=== PATIENT | male | born 1955 | race Caucasian/White ===

== ENCOUNTER → 2016-06-10 | Outpatient (CLI) | payer OTHER ==
[~2016-06-10] MED LIST: ALLO300T2 PO; ASPI81TA27 PO; CLOP75TA28 PO; EZET10TA38 PO; GEMF600T3 PO; LISI-646 PO; METO25TA5 PO; PANT1INJ3 PO
== END | disposition home or self-care (01) ==
LOC: Rad HDHVI 13:54
PROVIDERS: ATTEND Internal Medicine Cardiovascular Disease
DX: R07.89 Other chest pain (principal)
CPT/HCPCS: 93306

== ENCOUNTER → 2016-07-07 | Outpatient (CLI) | payer OTHER ==
[~2016-07-07] VITALS: Ht 185.4 cm; Wt 93.4 kg
== END | disposition home or self-care (01) ==
LOC: Rad HDHVI 14:00
PROVIDERS: ATTEND Internal Medicine Cardiovascular Disease
DX: I25.10 Atherosclerotic heart disease of native coronary artery without angina pectoris (principal); I10 Essential (primary) hypertension; E78.00 Pure hypercholesterolemia, unspecified; I25.2 Old myocardial infarction; Z82.49 Family history of ischemic heart disease and other diseases of the circulatory system
CPT/HCPCS: 78452; 93017; 96374; A9500